=== PATIENT | male | born 1985 | race Hispanic/Latino ===

== ENCOUNTER 2017-07-01 07:52 | Day surgery (SDC) | payer OTHER ==
[2017-06-23 11:20] VITALS: BP 133/65
[2017-06-23 11:50] LABS: APPEARANCE,URINE Clear (CLEAR); BILIRUBIN,URINE Negative (NEGATIVE); COLOR,URINE Yellow (YELLOW); GLUCOSE, URINE (UA) Negative (NEGATIVE); KETONES,URINE Negative (NEGATIVE); LEUKOCYTE ESTERASE ,URINE Negative (NEGATIVE); NITRATE,URINE Negative (NEGATIVE); OCCULT BLOOD,URINE Negative (NEGATIVE); PROTEIN,URINE Negative (NEGATIVE); UROBILINOGEN,URINE 0.2 mg/dL (0.2-1.0)
[2017-06-23 11:50] LABS: BASOPHILS % (AUTO) 0.6 % (0.0-5.0); EOSINOPHILS % (AUTO) 4.1 % (0.0-8.0); HEMATOCRIT 44.4 % (42-54); LYMPHOCYTES % (AUTO) 46.3 % (21.0-51.0); MEAN CORPUSCULAR HEMOGLOBIN 29.6 pg (27.0-33.0); MEAN CORPUSCULAR VOLUME 86.8 fL (79-99); MONOCYTES % (AUTO) 9.5 % (3.0-13.0); NEUTROPHILS % (AUTO) 39.5 % (40.0-77.0); NUCLEATED RED BLOOD CELLS 0.1 % (0.0-0.19); PLATELET COUNT (AUTO) 207 K/uL (130-400); RED BLOOD CELL COUNT(AUTO) 5.11 MIL/uL (4.50-6.20); RED CELL DISTRIBUTION WIDTH 13.5 % (11.0-15.5); WHITE BLOOD COUNT (AUTO) 4.9 K/uL (4.8-10.8)
[2017-06-23 12:02] LABS: POTASSIUM 4.4 mmol/L (3.5-5.1)
[2017-06-23 12:18] LABS: INR 0.89 (0.85-1.15); PARTIAL THROMBOPLASTIN TIME 26.1 SEC (26.3-35.5); PROTHROMBIN TIME 9.4 SEC (9.6-11.6)
[2017-07-01] VITALS (12 sets, daily range): BP systolic 128–147; BP diastolic 65–90
[~2017-07-01] VITALS: Ht 170.2 cm; Wt 88.5 kg
[~2017-07-01 07:52] MED LIST: CEFAZOLIN SODIUM 1 GM VIAL IVP ONE; WATER FOR INJECTION,STERILE 20 ML VIAL IJ ONE
[2017-07-01] MEDS ORDERED: WATER FOR INJECTION,STERILE 20 ML VIAL ONE (08:26)
[2017-07-01] MEDS ORDERED: LACTATED RINGERS 1000ML 1,000 ML IV ONE (08:26)
[2017-07-01] MEDS ORDERED: CEFAZOLIN SODIUM 1 GM VIAL ONE (08:26)
[2017-07-01] MEDS ORDERED: ONDANSETRON HCL 4 MG/2 ML VIAL ONE (09:05)
[2017-07-01] MEDS ORDERED: DEXAMETHASONE SOD PHOSPHATE 10MG/ML 1ML VIAL ONE (09:06)
[2017-07-01] MEDS ORDERED: LIDOCAINE PF 2% 5ML ABBOJECT ONE (09:06)
[2017-07-01] MEDS ORDERED: PROPOFOL 10 MG/ML 20ML VIAL IV ONE ×2 (09:06→09:45)
[2017-07-01] MEDS ORDERED: GLYCOPYRROLATE 0.2 MG/ML 5 ML VIAL ONE (09:06)
[2017-07-01] MEDS ORDERED: FENTANYL CITRATE PF 50 MCG/1 ML 2ML VIAL ONE (09:06)
[2017-07-01] MEDS ORDERED: MIDAZOLAM HCL 1 MG/ML 2ML VIAL ONE (09:06)
== END 2017-07-01 11:50 | disposition home or self-care (01) ==
LOC: DAH 07:52
DX: Z47.2 Encounter for removal of internal fixation device (principal); Z98.890 Other specified postprocedural states; Z79.899 Other long term (current) drug therapy
CPT/HCPCS: 20680; 36415; 71045; 76000; 80051; 81003; 85025; 85610; 85730; 93005; A4649; A4930; A6223; A6446; J0690; J1100; J2001; J2250; J2405; J2704 ×2; J3010; J3490; J7120

== ENCOUNTER 2017-10-07 06:59 | Day surgery (SDC) | payer OTHER ==
[2017-10-06 12:24] VITALS: BP 135/62
[2017-10-06 12:32] LABS: BASOPHILS % (AUTO) 0.7 % (0.0-5.0); EOSINOPHILS % (AUTO) 2.8 % (0.0-8.0); HEMATOCRIT 44.6 % (42-54); LYMPHOCYTES % (AUTO) 42.3 % (21.0-51.0); MEAN CORPUSCULAR HEMOGLOBIN 30.6 pg (27.0-33.0); MEAN CORPUSCULAR HGB CONC 34.7 g/dL (32.0-36.0); MEAN CORPUSCULAR VOLUME 88.3 fL (79-99); MONOCYTES % (AUTO) 7.1 % (3.0-13.0); NEUTROPHILS % (AUTO) 47.1 % (40.0-77.0); NUCLEATED RED BLOOD CELLS 0.1 % (0.0-0.19); PLATELET COUNT (AUTO) 248 K/uL (130-400); RED BLOOD CELL COUNT(AUTO) 5.05 MIL/uL (4.50-6.20); RED CELL DISTRIBUTION WIDTH 14.1 % (11.0-15.5); WHITE BLOOD COUNT (AUTO) 5.5 K/uL (4.8-10.8)
[2017-10-06 12:43] LABS: INR 0.95 (0.85-1.15); PARTIAL THROMBOPLASTIN TIME 27.2 SEC (26.3-35.5)
[2017-10-06 12:48] LABS: ALBUMIN 4.4 g/dL (3.5-5.0); BILIRUBIN,TOTAL 0.4 mg/dL (0.2-1.0); POTASSIUM 4.6 mmol/L (3.5-5.1); TOTAL PROTEIN, SERUM 8.6 g/dL (6.0-8.3)
[2017-10-06 12:48] LABS: APPEARANCE,URINE Clear (CLEAR); BILIRUBIN,URINE Negative (NEGATIVE); COLOR,URINE Yellow (YELLOW); GLUCOSE, URINE (UA) Negative (NEGATIVE); KETONES,URINE Negative (NEGATIVE); LEUKOCYTE ESTERASE ,URINE Negative (NEGATIVE); NITRATE,URINE Negative (NEGATIVE); OCCULT BLOOD,URINE Negative (NEGATIVE); PROTEIN,URINE Negative (NEGATIVE); UROBILINOGEN,URINE 0.2 mg/dL (0.2-1.0)
[2017-10-07] VITALS (21 sets, daily range): BP systolic 108–145; BP diastolic 51–86
[~2017-10-07] VITALS: Ht 167.6 cm; Wt 92.1 kg
[2017-10-07] MEDS ORDERED: LACTATED RINGERS 1000ML 1,000 ML IV ONE (08:05)
[2017-10-07] MEDS: CEFAZOLIN SODIUM 1 GM VIAL ONE ×2 (08:16→09:29)
[2017-10-07] MEDS ORDERED: PROPOFOL 10 MG/ML 20ML VIAL IV ONE (09:08)
[2017-10-07] MEDS ORDERED: MIDAZOLAM HCL 1 MG/ML 2ML VIAL ONE (09:08)
[2017-10-07] MEDS ORDERED: FENTANYL CITRATE PF 50 MCG/1 ML 2ML VIAL ONE ×2 (09:08→09:31)
[2017-10-07] MEDS ORDERED: LIDOCAINE PF 2% 5ML ABBOJECT ONE (09:09)
[2017-10-07] MEDS ORDERED: MEPERIDINE-PF 25 MG/ML SYG ONE ×2 (10:55→11:04)
== END 2017-10-07 13:28 | disposition home or self-care (01) ==
LOC: DAH 06:59
DX: T84.84XA Pain due to internal orthopedic prosthetic devices, implants and grafts, initial encounter (principal); S82.842P Displaced bimalleolar fracture of left lower leg, subsequent encounter for closed fracture with malunion; S82.402G Unspecified fracture of shaft of left fibula, subsequent encounter for closed fracture with delayed healing; S82.202G Unspecified fracture of shaft of left tibia, subsequent encounter for closed fracture with delayed healing; Y83.8 Other surgical procedures as the cause of abnormal reaction of the patient, or of later complication, without mention of misadventure at the time of the procedure; Z82.49 Family history of ischemic heart disease and other diseases of the circulatory system; X58.XXXD Exposure to other specified factors, subsequent encounter
CPT/HCPCS: 20680; 36415; 71045; 76000; 80053; 81003; 85025; 85610; 85730; 88300; 93005; 97116; 97161; A4218; A4649; A4930; A6223; A6446; G8978; G8979; G8980; G8981; G8982; G8983; J0690; J2001; J2175 ×2; J2250; J2704; J3010 ×2; J7120 ×2